=== PATIENT | female | born 1985 | race Caucasian/White ===

== ENCOUNTER 2017-03-13 12:51 | Emergency (ER) | payer MEDICAID, OTHER ==
[~2017-03-13] VITALS: Ht 152.4 cm; Wt 81.2 kg
[~2017-03-13 12:51] MED LIST: IRON65TA11 PO; PREN-385 PO
[2017-03-13 12:56] VITALS: BP 115/78
[2017-03-13 13:39] LABS: BASOPHILS # (AUTO) 0.1 K/uL (0.00-0.22); BASOPHILS % (AUTO) 1.4 % (0.0-2.0); EOSINOPHILS # (AUTO) 0.7 K/uL (0-0.4); EOSINOPHILS % (AUTO) 7.7 % (0.0-4.0); HEMATOCRIT 35.8 % (36-48); HEMOGLOBIN 11.7 g/dL (12.0-16.0); LYMPHOCYTES # (AUTO) 2.6 K/uL (2.5-16.5); LYMPHOCYTES % (AUTO) 30.4 % (20.5-51.1); MEAN CORPUSCULAR HEMOGLOBIN 27 pg (27-31); MEAN CORPUSCULAR HGB CONC 33 g/dL (33-37); MEAN CORPUSCULAR VOLUME 81 fL (80-94); MONOCYTES # (AUTO) 0.6 K/uL (0.8-1.0); MONOCYTES % (AUTO) 6.5 % (1.7-9.3); NEUTROPHILS # (AUTO) 4.5 K/uL (1.8-7.7); PLATELET COUNT (AUTO) 397 K/uL (140-450); RED BLOOD CELL COUNT(AUTO) 4.41 MIL/uL (4.20-5.40); RED CELL DISTRIBUTION WIDTH 14.9 % (11.6-13.7); WHITE BLOOD COUNT (AUTO) 8.5 K/uL (4.8-10.8)
[2017-03-13 13:54] LABS: ANION GAP 12.7 (8-16); CALCIUM 8.2 mg/dL (8.5-10.1); CREATININE 0.6 mg/dL (0.6-1.3); POTASSIUM 3.7 mmol/L (3.5-5.1)
[2017-03-13 14:11] LABS: ALBUMIN 3.4 g/dL (3.4-5.0); TOTAL BILIRUBIN 0.3 mg/dL (0.0-1.0)
--- NOTE | 2017-03-13 14:53 | NUR ---
Patient to bed 8
--- NOTE | 2017-03-13 15:00 | NUR ---
PATIENT PRESENTS TO ED WITH c/o diarrhea x 2 wks watery stools with nauses---umbilical region discomfort seen in [facility] ER x4 days ago--f/u with PMD today which ref pt to ER hx---umbilical hernia rx----none . DENIES N/V; SKIN IS PINK/WARM/DRY; AAOX4 WITH EVEN AND STEADY GAIT; LUNGS CLEAR BL; HR EVEN AND REGULAR; PT DENIES ANY FEVER, CP, SOB, OR COUGH AT THIS TIME; PATIENT STATES PAIN OF 3/10 AT THIS TIME; VSS; PATIENT POSITIONED FOR COMFORT; HOB ELEVATED; BEDRAILS UP X2; BED DOWN. ER MD MADE AWARE OF PT STATUS.
[2017-03-13] MEDS ORDERED: KETOROLAC 60 MG/2 ML VIAL IM ONE (16:00)
[2017-03-13] MEDS ORDERED: KETOROLAC 30 MG/ML VIAL IVP ONE (16:05)
[2017-03-13 16:32] VITALS: BP 106/67
--- NOTE | 2017-03-13 16:32 | NUR ---
Patient discharged with v/s stable. Written and verbal after care instructions given and explained. Patient alert, oriented and verbalized understanding of instructions. Ambulatory with steady gait. All questions addressed prior to discharge. ID band removed. Patient advised to follow up with PMD. Rx of norco, motrin given. Patient educated on indication of medication including possible reaction and side effects. Opportunity to ask questions provided and answered.
== END 2017-03-13 16:32 | disposition home or self-care (01) ==
LOC: MED 12:51
DX: K46.9 Unspecified abdominal hernia without obstruction or gangrene (principal)
CPT/HCPCS: 36415; 74176; 80053; 81002; 81025; 83690; 85025; 96374; 99285; J1885

== ENCOUNTER 2018-02-23 03:42 | Emergency (ER) | payer OTHER ==
[~2018-02-23] VITALS: Ht 152.4 cm; Wt 81.2 kg
[~2018-02-23 03:42] MED LIST changes: +FERR-252 PO; -IRON65TA11 PO
[2018-02-23 03:52] VITALS: BP 121/82
--- NOTE | 2018-02-23 04:40 | NUR ---
PT AMBUALTED TO BED 6
--- NOTE | 2018-02-23 04:40 | NUR ---
32/F CAME IN W C/O SORE THROAT AND CHILLS X 1 DAY. PT REPORTS NASAL CONGESTION AND PRODUCTIVE COUGH X 1 DAY. ALL LUNG SOUNDS CBTA, 18RR EVEN AND UNLABORED. DENIES PMH/RX, TOOK DAYQUIL YESTERDAY WITHOUT MODERATE RELIEF OF SX Addendum: 02/23/18 at 0525 by KELTON ADDENDUM: PMH: UMBILICAL HERNIA REPAIR
--- NOTE | 2018-02-23 06:37 | NUR ---
Dr. Saravia evaluating patient at bedside.
--- NOTE | 2018-02-23 07:03 | NUR ---
RECEIVED REPORT FROM KARI WHITAKER FOR CONTINUITY OF CARE .
--- NOTE | 2018-02-23 07:05 | NUR ---
PT IN BEDSIDE CHAIR APPEARENT DISTRESS AWAITING RESULTS. WILL CONTINUE TO MONITOR Addendum: 02/23/18 at 0708 by [facility] IN NO APPEARENT DISTRESS
--- NOTE | 2018-02-23 07:32 | NUR ---
dr austin at bedside
[2018-02-23 07:50] VITALS: BP 98/56
--- NOTE | 2018-02-23 07:50 | NUR ---
Patient discharged with v/s stable. Written and verbal after care instructions given and explained. Patient alert, oriented and verbalized understanding of instructions. Ambulatory with steady gait. All questions addressed prior to discharge. ID band removed. Patient advised to follow up with PMD. Rx of AMOXICILLIN 500MG, MOTRIN 800MG, LIDOCAINE 2% SOLUTION given. Patient educated on indication of medication including possible reaction and side effects. Opportunity to ask questions provided and answered.
== END 2018-02-23 07:50 | disposition home or self-care (01) ==
LOC: MED 03:42
DX: J03.00 Acute streptococcal tonsillitis, unspecified (principal)
CPT/HCPCS: 81002; 81025; 87081; 99283

== ENCOUNTER 2018-11-21 17:46 | Emergency (ER) | payer OTHER ==
[~2018-11-21] VITALS: Ht 152.4 cm; Wt 81.6 kg
[2018-11-21 18:23] VITALS: BP 110/50
--- NOTE | 2018-11-21 19:37 | NUR ---
PT AMBULATED TO BED 10
--- NOTE | 2018-11-21 19:56 | NUR ---
PT PRESENTS TO THE ED CO 5/10 CRAMPING/SHARP CENTRALIZED ABD PAIN THAT COMES AND GOES X 1 WEEK. PT ALSO REPORTS THAT SHE EXPERIENCES NOSE BLEEDS AFTER THESE EPISODES. PT ALSO DESCRIBES A PULSATING SENSATION IN HER LEFT LOWER QUADRANT. -- ABD IS ROUND, SOFT AND NON-TENDER TO TOUCH. BOWEL SOUNDS PRESENT AND ACTIVE IN ALL 4 QUADRANTS. NO REBOUND TENDERNESS NOTED. PT DENIES NVD. --PMH: UMBILICAL HERNIA WITH MESH IMPLANT- 2017
[2018-11-21 20:04] LABS: BASOPHILS % (AUTO) 0.3 % (0.0-2.0); EOSINOPHILS # (AUTO) 0.6 K/uL (0-0.4); EOSINOPHILS % (AUTO) 5.5 % (0.0-4.0); LYMPHOCYTES # (AUTO) 3.6 K/uL (2.5-16.5); LYMPHOCYTES % (AUTO) 32.8 % (20.5-51.1); MEAN CORPUSCULAR HEMOGLOBIN 28 pg (27-31); MEAN CORPUSCULAR HGB CONC 33 g/dL (33-37); MEAN CORPUSCULAR VOLUME 82.5 fL (80-94); MONOCYTES # (AUTO) 0.9 K/uL (0.8-1.0); MONOCYTES % (AUTO) 7.9 % (1.7-9.3); NEUTROPHILS # (AUTO) 5.9 K/uL (1.8-7.7); NEUTROPHILS % (AUTO) 53.5 % (42.2-75.2); PLATELET COUNT (AUTO) 362 K/uL (140-450); RED BLOOD CELL COUNT(AUTO) 4.37 MIL/uL (4.20-5.40); RED CELL DISTRIBUTION WIDTH 14.4 % (11.6-13.7)
[2018-11-21 20:05] LABS: APPEARANCE,URINE CLEAR (CLEAR); BILIRUBIN,URINE NEGATIVE (NEGATIVE); BLOOD, URINE NEGATIVE (NEGATIVE); COLOR,URINE YELLOW (YELLOW); LEUKOCYTE ESTERASE ,URINE NEGATIVE (NEGATIVE); NITRITE, URINE NEGATIVE (NEGATIVE); PH,URINE 8.5 (5.0-9.0); UGLUCOSE NEGATIVE (NEGATIVE)
[2018-11-21 20:18] LABS: PROTHROMBIN TIME 10.4 secs (10.8-13.4)
[2018-11-21 20:19] LABS: ALBUMIN 3.5 g/dL (3.4-5.0); ANION GAP 13.8 (8-16); CARBON DIOXIDE 26.2 mmol/L (21-32); CREATININE 0.9 mg/dL (0.6-1.3); TOTAL BILIRUBIN 0.6 mg/dL (0.0-1.0)
--- NOTE | 2018-11-21 20:58 | NUR ---
EVALUATING PT AT BEDSIDE.
[2018-11-21 21:13] VITALS: BP 101/56
--- NOTE | 2018-11-21 21:13 | NUR ---
Patient discharged with v/s stable. Written and verbal after care instructions given and explained. Patient alert, oriented and verbalized understanding of instructions. Ambulatory with steady gait. All questions addressed prior to discharge. ID band removed. Patient advised to follow up with PMD. Rx of Motrin, Zofran, [place] given. Patient educated on indication of medication including possible reaction and side effects. Opportunity to ask questions provided and answered.
--- NOTE | 2018-11-21 21:13 | NUR ---
PT STATES SHE STILL HAS 5/10 PAIN THAT IS TOLERABLE. PROVIDED PT WITH PAIN RX FROM .
== END 2018-11-21 21:13 | disposition home or self-care (01) ==
LOC: MED 17:46
DX: R10.33 Periumbilical pain (principal); R11.0 Nausea; R04.0 Epistaxis; Z98.890 Other specified postprocedural states; Z79.899 Other long term (current) drug therapy
CPT/HCPCS: 36415; 80053; 81003; 81025; 83690; 85025; 85610; 85730; 99284